=== PATIENT | female | born 1975 | race Caucasian/White ===

== ENCOUNTER 2020-01-13 12:25 | Emergency (ER) | payer SELFPAY ==
[~2020-01-13] VITALS: Ht 172.7 cm; Wt 119.0 kg
--- NOTE | 2020-01-13 12:38 | PHYS DOC ---
Adult General Chief Complaint Chief Complaint: BACK PAIN - NO INJURY HPI HPI Patient is a [age] year old [sex] who presents with [] (BLACK HEBERT DO) HPI Patient is a 44-year-old female presents to the emergency department today with complaints of low back pain across her low back that started this past Monday morning. Patient states she got off work Monday morning at approximately 7 AM went home laid down on her couch for approximately an hour when she tried to get up she felt this pain across her low back with some pain radiating down her right leg. Patient denies injuring her back, cannot recall if she lifted anything heavy or twisted funny at work that night before her pain started. Patient states that she has no prior history of low back pains. Patient rates her pain at a 10/10 pain on a 1-10 pain scale. Patient states she did not take any medications at home for relief. Patient denies any loss of continence of bowel or bladder. Patient states she had a normal BM daily since her pain started, patient states she is urinating normally and has no urinary tract infection signs and symptoms or concerns, patient states she has no urinary pressure, urinary burning, increased frequency, no vaginal discharge, no STI concerns. Patient states her last normal period was 12/29/2019 states that she could not be she has not had sex this month. Patient denies any recent fever or chills, visual changes, nasal congestion cough or shortness of breath. Denies chest pains, abdominal pain, nausea, vomiting, diarrhea, constipation or blood in her stools. Patient denies any skin rashes, swelling of her glands, recent depressions, anxieties, denies homicidal or suicidal ideation. Patient states no one else living in her home is having the same symptoms. (TIFFANIE COX APRN) Review of Systems Review of Systems Fourteen body systems of review of systems have been reviewed. See HPI for pertinent positives and negative responses, other mcmillan all other systems are negative, non-pertinent or non-contributory (BLACK HEBERT DO) Family History Family History No significant family history related to today's ER visit. (TIFFANIE COX APRN) Current Medications Current Medications Patient denies taking home medications. (TIFFANIE COX APRN) Allergies Allergies Patient states she is allergic to latex. (TIFFANIE COX APRN) Physical Exam Physical Exam Constitutional: Well developed, well nourished, no acute distress, non-toxic appearance. HENT: Normocephalic, atraumatic, bilateral external ears normal, oropharynx moist, no oral exudates, nose normal. Eyes: PERRLA, EOMI, conjunctiva normal, no discharge. Neck: Normal range of motion, no tenderness, supple, no stridor. Cardiovascular: Heart rate regular, sinus rhythm, no murmurs rubs or gallops Lungs & Thorax: Bilateral breath sounds clear to auscultation Abdomen: Bowel sounds normal, soft, no tenderness, no masses, no pulsatile masses. Nonsurgical abdomen, no peritoneal signs Skin: Warm, dry, no erythema, no rash. Back: No midline tenderness, no CVA tenderness. Extremities: No tenderness, no cyanosis, no clubbing, ROM intact, no edema. Neurologic: Alert and oriented X 3, grossly normal motor & sensory function, no focal deficits noted. Psychologic: Affect normal, judgement normal, mood normal. (BLACK HEBERT DO) Physical Exam Agree with physical exam charted above, however physical exam of the patient's back revealed no midline spine tenderness, patient has pain to palpation in the right and left lower lumbar region, there is no pain to palpation down either lower extremity, distal cap refill is less than 2 seconds, +2 dorsalis pedis and posterior tibial pulses, there is no swelling appreciated, there is no edema. Full AROM/PROM. (TIFFANIE COX APRN) Current Patient Data Vital Signs Vital signs taken by ED nurse are within normal limits. (TIFFANIE COX APRN) EKG EKG [] (BLACK HEBERT DO) Radiology/Procedures Radiology/Procedures [] (BLACK HEBERT DO) Heart Score Risk Factors: Risk Factors: DM, Current or recent (<one month) smoker, HTN, HLP, family history of CAD, obesity. Risk Scores: Risk Factors: DM, Current or recent (<one month) smoker, HTN, HLP, family history of CAD, obesity. (BLACK HEBERT DO) Course & Med Decision Making Course & Med Decision Making Given History and Exam the patient appears to be at low risk for Spinal Cord Compression Syndrome, Vertebral Malignancy/Mets, acute Spinal Fracture, Vertebral Osteomyelitis, Epidural Abscess, Infected or Obstructing Kidney Stone. Their presentation appears most likely to be secondary to non-emergent musculoskeletal etiology vs non-emergent disc herniation. ED Workup: Defer imaging and labwork for outpatient follow up at this time. Disposition: Discharge. Strict return precautions discussed with patient with full understanding. Advised patient to follow up promptly with primary care provider (BLACK HEBERT DO) Course & Med Decision Making 44-year-old patient presents emergency department with low back pain without injury, patient's vital signs are stable, physical exam is consistent with sciat ica pain, there is no saddle anesthesia, this is unlikely an acute fracture related to no complaint of injury or trauma. Patient was given Toradol 30 mg IM and an IM injection of Norflex ordered by ED attending Dr. Hebert prior to my assumption of care. Upon reexamination patient states her pain had relieved from a 10/10 pain down to a 7/10 pain on a 1-10 pain scale. Discussed findings with patient and diagnosis of sciatica pain, will give an IM injection of Depo- Medrol 80 mg. Will discharge home with a prescription for Motrin 600 mg 3 times daily as needed pain, Flexeril 10 mg 3 times daily as needed pain, patient will use ice packs to low back over the next 48 hours at 15 minutes on 15 minutes off intervals will give work excuse for the next 2 days. Patient gave verbal understanding of discharge home instructions, strict return to emergency department concerns, patient had no further questions or concerns, patient discharged home without incident. (TIFFANIE COX APRN) Dragon Disclaimer Dragon Disclaimer This electronic medical record was generated, in whole or in part, using a voice recognition dictation system. (BLACK HEBERT DO) Departure Departure: Impression: Primary Impression: Low back pain Disposition: 01 DC HOME SELF CARE/HOMELESS Condition: IMPROVED Referrals: PCP,NO (PCP) Patient Instructions: Back Exercises, Back Pain, Adult Additional Instructions: Please use ice packs to your low back for the next 48 hours at intervals of 15 minutes on 15 minutes off while awake. Take prescribed medications as directed, see your doctor soon if pain lingers on more than 3 or 4 days. Return to the emergency department for increased symptoms or further concerns. I will write you a work excuse for 2 days off of work. Please take this time to rest and let your back pain recover. You have been given instructions on back strengthening exercises, please begin these when you are back pain starts to relieve. EMERGENCY DEPARTMENT GENERAL DISCHARGE INSTRUCTIONS Thank you for coming to [facility] (ED) today and trusting us with you care. We trust that you had a positivie experience in our Emergency Department. If you wish to speak to the department management, you may call the director at [phone]. YOUR FOLLOW UP INSTRUCTIONS ARE FOLLOWS: 1. Do you have a private Doctor? If you do not have a private doctor, please ask for a resource list of physicians or clinics that may be able to assist you with follow up care. 2. The Emergency Physician has interpreted your x-rays. The X-Ray specialist will also review them. If there is a change in the findings, you will be notified in 48 hours when at all possible. 3. A lab test or culture has been done, your results will be reviewed and you will be notified if you need a change in treatment. ADDITIONAL INSTRUCTIONS AND INFORMATION: 1. Your care today has been supervised by a physician who is specially trained in emergency care. Many problems require more than one evaluation for a complete diagnosis and treatment. We recommend that you schedule your follow up appointment as recommended to ensure complete treatment of you illness or injury. If you are unable to obtain follow up care and continue to have a problem, or if your condition worsens, we recommend that you return to the ED. 2. We are not able to safely determine your condition over the phone nor are we able to give sound medical advice over the phone. For these safety reasons, if you call for medical advice we will ask you to come to the ED for further evaluation. 3. If you have any questions regarding these discharge instructions please call the ED at [phone]. SAFETY INFORMATION: In the interest of safety, wellness, and injury prevention; we encourage you to wear your sealbelt, if you smoke; quite smoking, and we encourage family to use a protective helmet for bicycling and other sporting events that present an increased risk for head injury. IF YOUR SYMPTOMS WORSEN OR NEW SYMPTOMS DEVELOP, OR YOU HAVE CONCERNS ABOUT YOUR CONDITION; OR IF YOUR CONDITION WORSENS WHILE YOU ARE WAITING FOR YOUR FOLLOW UP APPOINTMENT; EITHER CONTACT YOUR PRIMARY CARE DOCTOR, THE PHYSICIAN WHOSE NAME AND NUMBER YOU WERE GIVEN, OR RETURN TO THE ED IMMEDIATELY. Scripts Cyclobenzaprine Hcl (CYCLOBENZAPRINE HCL) 10 Mg Tablet 1 TAB PO TID PRN for BACK SPASMS, #20 TAB 0 Refills Prov: TIFFANIE COX APRN 01/13/20 Ibuprofen (IBUPROFEN) 600 Mg Tablet 600 MG PO TID PRN PRN for BACK DISCOMFORT, #20 TAB 0 Refills Take 1 tablet up to 3 times a day at least 8 hours apart for back discomfort Prov: TIFFANIE COX APRN 01/13/20 Problem Qualifiers Primary Impression: Low back pain Chronicity: acute Back pain laterality: bilateral Sciatica presence: with sciatica Sciatica laterality: sciatica of right side Qualified Codes: M54.41 - Lumbago with sciatica, right side BLACK HEBERT DO Jan 13, 2020 12:38 TIFFANIE COX APRN Jan 13, 2020 14:43
[2020-01-13] MEDS ORDERED: KETOROLAC 30 MG/ML VIAL. IM ONE (13:30)
[2020-01-13] MEDS ORDERED: ORPHENADRINE CITRATE 60 MG/2 ML VIAL. IM ONE (13:30)
[2020-01-13] MEDS ORDERED: methylPREDNISolone ACETATE 80 MG/ML VIAL. IM ONE (14:30)
[2020-01-13] MEDS ORDERED: CYCL-331 PO (15:24)
[2020-01-13] MEDS ORDERED: IBUP600T16 PO (15:24)
[2020-01-13 15:30] VITALS: BP 119/63
== END 2020-01-13 15:34 | disposition home or self-care (01) ==
LOC: ER 12:25
DX: M54.5 Low back pain (principal); Z91.040 Latex allergy status
CPT/HCPCS: 96372; 96374; 99284; J1040; J1885; J2360; J3010